=== PATIENT | female | born 1990 | race Caucasian/White ===

== ENCOUNTER 2022-10-05 09:46 | Day surgery (SDC) | payer BC ==
[2022-10-05] MEDS ORDERED: Sodium Chloride 0.9% 10 ML Syringe FLUSH PRN (10:48)
[2022-10-05] MEDS ORDERED: Ondansetron 4 MG/2 ML SDV IVPUSH STA (10:48)
[2022-10-05] MEDS ORDERED: Sodium Chloride 0.9% 2.5 ML Syringe FLUSH PRN (10:48)
[2022-10-05] MEDS ORDERED: Morphine 4 MG/ML Syringe IVPUSH STA (10:48)
[2022-10-05] MEDS ORDERED: Acetaminophen 500 MG Tab PO STA (11:08)
[2022-10-05 11:38] LABS: BASOPHILS PERCENT AUTO 0.1 % (0.0-1.5); EOSINOPHILS ABSOLUTE AUTO 0.1 K/uL (0.0-0.7); EOSINOPHILS PERCENT AUTO 1.1 % (0.0-7.0); HEMOGLOBIN 12.5 g/dL (12.0-16.0); LYMPHOCYTES ABSOLUTE AUTO 1.2 K/uL (0.6-2.4); LYMPHOCYTES PERCENT AUTO 14.8 % (16.0-40.0); MEAN CORPUSCULAR HEMOGLOBIN 26.6 pg (27.0-32.0); MEAN CORPUSCULAR HGB CONC 32.1 g/dL (31.0-37.0); MONOCYTES ABSOLUTE AUTO 0.4 K/uL (0.0-0.8); MONOCYTES PERCENT AUTO 4.4 % (0.0-15.0); NEUTROPHILS ABSOLUTE AUTO 6.3 K/uL (1.4-5.7); NEUTROPHILS PERCENT AUTO 79.6 % (48.0-80.0); NRBC ABSOLUTE 0 K/uL; PLATELET COUNT,PLT 312 K/uL (150-400); WHITE BLOOD CELL COUNT,WBC 7.95 K/uL (4.0-11.0)
[2022-10-05 11:41] LABS: CALCIUM 8.4 mg/dL (8.5-10.1); CARBON DIOXIDE,CO2 25.5 mmol/L (21.0-32.0); CREATININE 0.8 mg/dL (0.6-1.0); EST CRCL DRUG DOSING (CG) 87.18 mL/min; POTASSIUM,K 4.4 mmol/L (3.5-5.1)
[2022-10-05] MEDS ORDERED: fentaNYL 100 MCG/2 ML SDV ONE (13:33)
== END 2022-10-05 16:06 | disposition home or self-care (01) ==
LOC: MW.ED 09:46 → MW.SDS 14:08 → MW.MS 14:09 → MW.SDS 16:06
PROVIDERS: ATTEND Orthopaedic Surgery
DX: S82.62XA Displaced fracture of lateral malleolus of left fibula, initial encounter for closed fracture (principal); Z91.040 Latex allergy status; W10.9XXA Fall (on) (from) unspecified stairs and steps, initial encounter
CPT/HCPCS: 27840; 36415; 73590; 73630; 76000; 80048; 84703; 85025; 96374; 96375; 99284; A9270; J2270; J2405; J3010; J3490; 01462; 99285

== ENCOUNTER 2022-10-07 11:00 | Day surgery (SDC) | payer BC ==
[2022-10-07] MEDS ORDERED: Ondansetron 4 MG/2 ML SDV IVPUSH PRN (11:21)
[2022-10-07] MEDS ORDERED: droPERidol 5 MG/2 ML SDV IVPUSH PRN (11:21)
[2022-10-07] MEDS ORDERED: Naloxone 0.4 MG/ML SDV IVPUSH PRN (11:21)
[2022-10-07] MEDS ORDERED: fentaNYL 50 MCG/ML SDV IVPUSH PRN (11:21)
[2022-10-07] MEDS ORDERED: HYDROmorphone 1 MG/ML Syringe IVPUSH PRN (11:21)
[2022-10-07] MEDS ORDERED: Albuterol 0.083% 2.5 MG/3 ML Neb Soln NEB PRN (11:21)
[2022-10-07] MEDS ORDERED: Metoclopramide 10 MG/2 ML SDV IVPUSH PRN (11:21)
[2022-10-07] MEDS ORDERED: Morphine 2 MG/ML SYRINGE IVPUSH PRN (11:21)
[2022-10-07] MEDS ORDERED: propofoL 50 ML ONE ×2 (11:49→11:50)
[2022-10-07] MEDS ORDERED: Dexmedetomidine 200 MCG/2 ML SDV ONE (11:50)
[2022-10-07] MEDS ORDERED: Metoclopramide 10 MG/2 ML SDV ONE (11:50)
[2022-10-07] MEDS ORDERED: Ketorolac 30 MG/ML SDV ONE (11:51)
[2022-10-07] MEDS ORDERED: Ondansetron 4 MG/2 ML SDV ONE ×2 (11:51)
[2022-10-07] MEDS ORDERED: fentaNYL 100 MCG/2 ML SDV ONE (12:12)
[2022-10-07] MEDS ORDERED: Lactated Ringers 1,000 ML IV SCH (12:15)
[2022-10-07] MEDS ORDERED: Bupivacaine 0.25% 30 ML SDV ONE (12:25)
[2022-10-07] MEDS ORDERED: ceFAZolin 1 GM Vial ONE (12:28)
[2022-10-07] MEDS ORDERED: Midazolam 1 MG/ML 2 ML SDV ONE (12:30)
== END 2022-10-07 19:00 | disposition home or self-care (01) ==
LOC: MW.SDS 11:00 → MW.MS 11:00 → UNDOADMOB 15:36 → MW.MS 15:36 → MW.SDS 19:00
PROVIDERS: ATTEND Orthopaedic Surgery
DX: S82.62XA Displaced fracture of lateral malleolus of left fibula, initial encounter for closed fracture (principal); S93.432A Sprain of tibiofibular ligament of left ankle, initial encounter; E66.9 Obesity, unspecified; W10.9XXA Fall (on) (from) unspecified stairs and steps, initial encounter
CPT/HCPCS: 27792; 27829; 76000; J0690; J1885; J2250; J2405; J2704; J2765; J3010; J3490; J7120